=== PATIENT | female | born 1970 | race Caucasian/White ===

== ENCOUNTER 2023-05-10 07:08 | Outpatient (CLI) | payer BC, SELFPAY ==
--- NOTE | 2023-05-10 07:15 | CRLHL7_ITS ---
For Patients: As a result of the Century Cures Act, medical imaging exams and procedure reports are released immediately into your electronic medical record. You may view this report before your referring provider. If you have questions, please contact your health care provider. INDICATION: THICKENED ENDOMETRIUM COMPARISON: none TECHNIQUE: 2D garcia scale and color Doppler images were acquired of the pelvis using a transabdominal and transvaginal approach. FINDINGS: Sonographic images demonstrate a normal size and smooth outer contour of the uterus. Uterus measures 11.8 cm in length by 7.0 cm in AP diameter by 7.5 cm in transverse dimension. Circumscribed hypoechoic uterine fibroid measuring 3.1 x 2.7 x 2.9 cm. This has mass effect upon the adjacent endometrium. The endometrial lining appears thickened and measures 12 mm in composite thickness. The right ovary measures 3.0 x 1.6 x 1.7 cm in size and the left ovary measures 3.1 x 1.8 x 2.3 cm. The ovaries demonstrate normal arterial and venous blood flow on color Doppler analysis. There are no suspicious fluid collections within the cul-de-sac. IMPRESSION: Midline posterior uterine fibroid measuring 3.1 cm with mass effect upon the adjacent endometrium. Endometrial thickness 1.2 cm. Dictated by Terry Bran MD @ 05/10/2023 10:56:01 AM (Electronically Signed)
== END 2023-05-10 07:09 | disposition home or self-care (01) ==
PROVIDERS: PCP Family Medicine; Visit Provider Family Medicine
DX: R93.89 Abnormal findings on diagnostic imaging of other specified body structures (principal); D25.9 Leiomyoma of uterus, unspecified
CPT/HCPCS: 76856